=== PATIENT | female | born 1955 | race Caucasian/White ===

== ENCOUNTER 2022-03-20 07:24 | Emergency (ER) | payer OTHER, MEDICARE | END 2022-03-20 08:22 | disposition home or self-care (01) | LOC: BURERS 07:24 | DX: S63.602A Unspecified sprain of left thumb, initial encounter (principal); M19.042 Primary osteoarthritis, left hand; W01.0XXA Fall on same level from slipping, tripping and stumbling without subsequent striking against object, initial encounter ==